=== PATIENT | male | born 1955 | race Two or more races ===

== ENCOUNTER 2018-09-13 17:02 | Emergency (ER) | payer OTHER ==
[2018-09-13 17:18] VITALS: BP 129/88
[2018-09-13] MEDS ORDERED: Tetan/Diph/Pertus SYR(Tdap)* 0.5 ML SYR(BOOSTRIX) use SYR IM ONE (17:27)
--- NOTE | 2018-09-13 17:29 | ED ---
Bite Injury/Animal - HPI Summary HPI Summary: 62-year-old male presents with scratches to his left forearm and bite to right- handed from his cat. He states that the scratches from his cat on Sunday. cat is up to date on rabies. He states that his been keeping the area clean. Tetanus is not up to date. is not diabetic. primary told him to follow up with us for tetanus and antibiotics. no fever or spreading redness. - History of Current Complaint Chief Complaint: UCBiteInjury Stated Complaint: CAT BITE Time Seen by Provider: 09/13/18 17:09 Pain Intensity: 0 - Allergies/Home Medications Allergies/Adverse Reactions: Allergies Allergy/AdvReac Type Severity Reaction Status Date / Time levofloxacin Allergy Itching Verified 09/13/18 17:19 Penicillins Allergy Itching Verified 09/13/18 17:19 Home Medications: Home Medications Tamsulosin CAP* [Flomax CAP*] 0.4 mg PO BEDTIME 09/13/18 [History Confirmed ] PMH/Surg Hx/FS Hx/Imm Hx Endocrine/Hematology History: Denies: Hx Diabetes Cardiovascular History: Reports: Hx Hypertension Denies: Hx Pacemaker/ICD History: Denies: Hx Renal Disease Musculoskeletal History: Denies: Hx Scoliosis Sensory History: Denies: Hx Hearing Aid Neurological History: Denies: Hx Headaches Psychiatric History: Denies: Hx Panic Disorder Infectious Disease History: No Infectious Disease History: Denies: Traveled Outside the [place] in Last 30 Days - Family History Known Family History: Positive: Non-Contributory - Social History Alcohol Use: Occasionally Substance Use Type: Reports: None Smoking Status (MU): Never Smoked Tobacco Review of Systems Negative: Fever Negative: Chest Pain Negative: Shortness Of Breath Positive: Other - cat scratch All Other Systems Reviewed And Are Negative: Yes Physical Exam Triage Information Reviewed: Yes Vital Signs On Initial Exam: Initial Vitals Temp Pulse Resp BP Pulse Ox 98.5 F 78 18 129/88 96 09/13/18 17:13 09/13/18 17:13 09/13/18 17:13 09/13/18 17:13 09/13/18 17:13 Vital Signs Reviewed: Yes Appearance: Positive: Well-Appearing Skin: Positive: Warm, Dry, Other - 6cm and 3cm superficial scratch to left forearm, puncture wound to right middle finger no erythema surrounding these Head/Face: Positive: Normal Head/Face Inspection Eyes: Positive: Normal, Conjunctiva Clear ENT: Positive: Pharynx normal Respiratory/Lung Sounds: Positive: Clear to Auscultation, Breath Sounds Present Cardiovascular: Positive: Normal, RRR Musculoskeletal: Positive: Strength/ROM Intact - upper extremities, Other - good pulses Neurological: Positive: Normal Psychiatric: Positive: Normal Diagnostics - Vital Signs Vital Signs Temp Pulse Resp BP Pulse Ox 09/13/18 17:13 98.5 F 78 18 129/88 96 - Laboratory Lab Statement: Any lab studies that have been ordered have been reviewed, and results considered in the medical decision making process. Bite Injury Course/Dx - Course Course Of Treatment: 62-year-old male presents with scratches to his left forearm and bite to right-handed from his cat. He states that the scratches from his cat on Sunday. cat is up to date on rabies. He states that his been keeping the area clean. Tetanus is not up to date. is not diabetic. primary told him to follow up with us for tetanus and antibiotics. no fever or spreading redness. on exam has scratch to left forearm and bite to right middle finger with no erythema or evidence of cellulitis. no lymphadenopathy. will place on doxycycline. gave tetanus. patient understand and agrees with plan. - Diagnoses Differential Diagnosis/HQI/PQRI: Positive: Cellulitis, Puncture, Rabies Exposure Provider Diagnosis: Cat bite Discharge - Sign-Out/Discharge Documenting (check all that apply): Patient Departure All imaging exams completed and their final reports reviewed: No Studies - Discharge Plan Condition: Good Disposition: HOME Prescriptions: DOXYcycline CAP(*) [DOXYcycline 100MG CAP(*)] 100 mg PO BID #10 cap Patient Education Materials: Animal Bite (ED) Referrals: Zhane Leung MD [Primary Care Provider] - Additional Instructions: take doxycycline twice a day for 5 days wash area with soap and water daily Go to ER if develop spreading redness, pus, fever, or any new or worsening symptoms - Billing Disposition and Condition Condition: GOOD Disposition: Home - Attestation Statements Provider Attestation: I was available for consult. This patient was seen by the [facility]. The patient was not presented to, seen by, or examined by me. -Tawnya
== END 2018-09-13 17:50 | disposition home or self-care (01) ==
LOC: UCEAST 17:02
DX: S61.452A Open bite of left hand, initial encounter (principal); Z88.0 Allergy status to penicillin; Z88.1 Allergy status to other antibiotic agents; W55.01XA Bitten by cat, initial encounter; Y92.9 Unspecified place or not applicable
CPT/HCPCS: 90471; 90715; 99212; G0463